=== PATIENT | female | born 1980 | race Asian ===

== ENCOUNTER 2019-04-01 11:28 | Emergency (ER) | payer OTHER ==
[~2019-04-01] VITALS: Ht 167.6 cm; Wt 64.4 kg
[2019-04-01 11:32] VITALS: TEMP 98.1
[2019-04-01 12:26] LABS: PLATELET COUNT 214 K/uL (152-353)
[2019-04-01 12:35] LABS: POTASSIUM 3.3 mmol/L (3.6-5.2)
[2019-04-01 15:28] VITALS: BP 128/83
== END 2019-04-01 15:28 | disposition home or self-care (01) ==
LOC: ED 11:28
PROVIDERS: Family Medicine
DX: K52.9 Noninfective gastroenteritis and colitis, unspecified (principal); E87.6 Hypokalemia
CPT/HCPCS: 80053; 81000; 82150; 83690; 85027; 87077; 87086; 87088; 87186; 96360; 96375; 99284; J1885; J2405; J3490